=== PATIENT | male | born 1985 | race African-American/Black ===

== ENCOUNTER 2019-07-20 15:57 | Emergency (ER) | payer BC ==
[~2019-07-20] VITALS: Ht 182.9 cm; Wt 149.7 kg
[2019-07-20 16:25] VITALS: BP 157/90
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
[2019-07-20] MEDS ORDERED: NAPR-514 PO (18:11)
[2019-07-20] MEDS ORDERED: CYCL10TA2 PO (18:11)
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
== END 2019-07-20 18:20 | disposition home or self-care (01) ==
LOC: ER 15:57
DX: M54.41 Lumbago with sciatica, right side (principal); I10 Essential (primary) hypertension; V49.49XA Driver injured in collision with other motor vehicles in traffic accident, initial encounter; Y93.I9 Activity, other involving external motion; Y92.488 Other paved roadways as the place of occurrence of the external cause; Y99.8 Other external cause status
CPT/HCPCS: 72100; 99284

== ENCOUNTER 2021-04-28 04:14 | Emergency (ER) | payer BC, OTHER ==
[~2021-04-28] VITALS: Ht 182.9 cm; Wt 177.8 kg
[~2021-04-28 04:14] MED LIST: CYCL10TA2 PO; NAPR-514 PO
[2021-04-28] MEDS ORDERED: LIDO:MAALOX 1:1 20 ML SINGLE DOSE. SWSW ONE (04:45)
--- NOTE | 2021-04-28 04:58 | ED.ADGEN ---
Past Medical History Past Medical History: Hypertension Past Surgical History: Tonsillectomy Smoking Status: Never Smoker Alcohol Use: None Drug Use: None General Adult EDM: Chief Complaint: MULTIPLE COMPLAINTS HPI: HPI: Patient is a 35 year old male coming in for multiple complaints. Patient states that he has been working outdoors at a [employer] with and started noticing blurred vision. Patient initially told triage that some of the symptoms started last month but noticing that he woke up one morning after April 21 and all the symptoms started at once. Patient has already seen his primary care provider's nurse practitioner for all these complaints. Was given naproxen and a Flexeril for his paresthesias in his left lateral thigh. He has not taken them know. Patient has a history of prior sciatica and back pain. Patient states he has been standing 16 hours a day. Patient is also stating that he has heartburn that is partially relieved with Tums for only a few minutes. Has not taken any antacid medications. Patient is also complaining of "blurred vision". Patient that he is unsure of how long his vision has been blurred since he has been working outside. Stating he has more difficulty with far vision. Review of Systems: Review of Systems: All other systems within normal limits except for as noted in the HPI Current Medications: Current Medications Medications (Trade) Dose Ordered Sig/Edwina Start Time Stop Time Status Last Admin Dose Admin Multi-Ingredient Mouthwash/Gargle (Gi Cocktail) 20 ml 1X ONCE 04/28/21 04:45 04/28/21 04:46 DC 04/28/21 04:48 20 ML Allergies: Allergies: Allergies Coded Allergies Type Severity Reaction Last Updated Verified No Known Drug Allergies 07/20/19 No Physical Exam: PE: Constitutional: Well developed, well nourished, no acute distress, non-toxic appearance. [] HENT: Normocephalic, atraumatic, bilateral external ears normal, nose normal. [] Eyes: PERRLA, conjunctiva normal, no discharge. [] Neck: No rigidity, supple, no stridor. [] Cardiovascular: Regular rate and rhythm, brisk cap refill [] Lungs & Thorax: Non labored symmetric respirations, no tachypnea or respiratory distress [] Abdomen: Soft, nondistended obese. Skin: Warm, dry, no erythema, no rash. [] Back: Unremarkable, no left lower back tenderness, no spinal tenderness, no step-off or deformity Extremities: No deformities, range of motion grossly intact, no lower extremity edema [] Neurologic: Alert and oriented X 3, no focal deficits noted. [] Psychologic: Affect normal, judgement normal, mood normal. [] Current Patient Data: Vital Signs: Vital Signs Date Time Temp Pulse Resp B/P (MAP) Pulse Ox O2 Delivery O2 Flow Rate FiO2 04/28/21 05:02 72 24 165/84 (111) 95 Room Air 04/28/21 04:15 97.6 97.6 EKG: EKG: [] Heart Score: C/O Chest Pain: No Risk Factors: Risk Factors: DM, Current or recent (<one month) smoker, HTN, HLP, family history of CAD, obesity. Risk Scores: Score 0 - 3: 2.5% MACE over next 6 weeks - Discharge Home Score 4 - 6: 20.3% MACE over next 6 weeks - Admit for Clinical Observation Score 7 - 10: 72.7% MACE over next 6 weeks - Early Invasive Strategies Radiology/Procedures: Radiology/Procedures: [] Course & Med Decision Making: Course & Med Decision Making Patient changing his story for various people. Unable to clearly elicit what patient wants out of the emergency department. Patient has follow-up with his primary care in 2 days but stated he "does not want to wait". Patient has history of standing for long periods of the day and morbid obesity, but will not take any of the muscle relaxers or pain medication prescribed by his primary care provider. Patient's eyesight is 20/15 both, 20/15 right, 20/25 left. Patient's main complaints are difficulty with far site. He has no eye pain or drainage. Gastric pain improved with GI cocktail. Given information on how to follow-up with ophthalmology. Advised patient to try using some of his pain medications for his sciatic pain and given information on stretches to help with muscle tension. Soraida Disclaimer: Soraida Disclaimer: This electronic medical record was generated, in whole or in part, using a voice recognition dictation system. Departure Departure Impression: Primary Impression: Vision problems Additional Impressions: Gastritis Paresthesia Condition: STABLE Referrals: SOILA WILLARD MD (PCP) Additional Instructions: [facility] [place] [address] [facility], [address] [place] [address] Scripts Sucralfate (SUCRALFATE) 1 Gm Tablet 1 TAB PO TID PRN for GI SYMPTOMS for 10 Days, #30 TAB 1 Refill Prov: MARK SORIANO MD 04/28/21 Omeprazole (OMEPRAZOLE) 40 Mg Capsule.dr 1 CAP PO DAILY for antacid for 30 Days, #30 CAP 3 Refills Prov: MARK SORIANO MD 04/28/21 Problem Qualifiers MARK SORIANO MD Apr 28, 2021 04:58
[2021-04-28 05:02] VITALS: BP 165/84
[2021-04-28] MEDS ORDERED: SUCR1TAB PO ×2 (05:10→05:12)
[2021-04-28] MEDS ORDERED: OMEP40CA7 PO (05:10)
== END 2021-04-28 05:15 | disposition home or self-care (01) ==
LOC: ER 04:14
DX: K29.70 Gastritis, unspecified, without bleeding (principal); H53.8 Other visual disturbances; R20.2 Paresthesia of skin; I10 Essential (primary) hypertension
CPT/HCPCS: 99283